=== PATIENT | female | born 1980 | race Caucasian/White ===

== ENCOUNTER 2024-10-25 07:30 | Day surgery (SDC) | payer BC, SELFPAY ==
[2024-10-24 10:31] VITALS: BMI 26.6
[2024-10-25 07:45] VITALS: BP 110/70; PULSE 83; RESP 16; TEMP 36.5; O2SAT 98
--- NOTE | 2024-10-25 08:02 | EXP.ANES.CKL ---
[facility] Disclaimer: The information contained in this section may have been updated after the patient was seen, as this information can be updated by other users. Medical History Peptic ulcer GERD (gastroesophageal reflux disease) H/O deep venous thrombosis Anxiety Surgical History H/O breast surgery H/O: hysterectomy H/O hemorrhoidectomy Family History Grandfather Cancer Alcoholism Liver disease Social History Smoking Status: Never smoker alcohol intake: never substance use type: denies use current occupational status: employed Travel in the last 8 weeks: Outside the [facility] Anesthesia Checklist Patient Identification Patient Identification: Arm Band Structural Data Admitted From: Home Planned Operative Procedure/s: Colonoscopy Consent for Planned Operative Procedure(s) Verified: Yes Verified Documents: Surgical Consent and History and Physical NPO Status Verified Time NPO: 00:00 Additional verifications Anesthesia Reactions: No Airway Assessment Mallampati Score:: Class II C-Spine Mobility Assessed: Yes TMJ Mobility Assessed: Yes Dentition: Good Dentition Neurological Assessment Level of Consciousness: Awake, Alert and Appropriate Anesthesia Plan Anesthesia Risk discussed: Yes Anesthesia Plan: Verified ASA Class: II Anesthesia Type: MAC
--- NOTE | 2024-10-25 08:20 | EXP.HP ---
History of Present Illness *Admission Date: 10/25/24 *Reason for visit:: Cecal lesion *History of present illness: Mrs. Song is a 43-year-old female who is here for second opinion/GI consultation. The patient did have a colonoscopy in August 2023 (Maureen Iyer MD?[facility] colorectal surgeon) and was told that she had a lesion/tumor in the cecum that was submucosal. She did a repeat colonoscopy in March 2024 with additional adenomatous polyps removed in the latter exam. After her second colonoscopy, she was told that this would have to be either removed surgically with right hemicolectomy, followed or endoscopic/colonoscopic removal. On its appearance it is umbilicated lesion that is submucosal in the cecum. She did have a CAT scan of the abdomen and pelvis at [facility] and there is no comment about any lesion on the colon and there is a very bare bones report. The patient states that at the time of her colonoscopy she did have hemorrhoid ablation. After her last colonoscopy, she had a remarkable change and has had constipation where she may go days without a bowel movement and did not have this prior to the colonoscopy. She does feel incomplete defecation. She also notes persistent right sided abdominal pain that is new. The patient reports no rectal bleeding or weight loss. She is concerned about the lesion and what to do and comes in for second opinion. [facility] Disclaimer: The information contained in this section may have been updated after the patient was seen, as this information can be updated by other users. Medical History Peptic ulcer GERD (gastroesophageal reflux disease) H/O deep venous thrombosis Anxiety Surgical History H/O breast surgery H/O: hysterectomy H/O hemorrhoidectomy Family History Grandfather Cancer Alcoholism Liver disease Social History (Updated 10/25/24 @ 08:03 by Jose Angel Ayers CRNA) Smoking Status: Never smoker alcohol intake: never substance use type: denies use current occupational status: employed Travel in the last 8 weeks: Outside the continental [place] Have you lived/traveled outside US in past 30 days?: No Contact w/someone who lives/traveled outside US past 30 days?: No Exposure to someone with infectious disease in past 14 days?: No Do you have a fever (greater than 100.4 F or 38 C)?: No Have you tested positive for COVID-19: No Exposed to someone with COVID-19 in past 14 days?: No Do you have a sore throat?: No Do you have a cough?: No Do you have any weakness?: No Are you experiencing any nausea/vomitting?: No Do you have any diarrhea?: No Are you experiencing any unusual bleeding?: No Do you have any muscle aches/pain?: No Do you have any abdominal pain?: No Are you experiencing loss of taste or smell?: No Review of Systems Review of Systems Review of systems (narrative): Negative *Cardiovascular Comments: Negative *Gastrointestinal Comments: Negative *Genitourinary Comments: Negative *Musculoskeletal Comments: Negative *Neurologic Comments: Negative Meds Home Medications and Allergies Home Medications ?Medication ?Instructions ?Recorded ?Confirmed ?Type Lactobacillus acidophilus 5,000 mmu cells PO DAILY 08/16/24 10/25/24 History cetirizine 5 mg tablet 5 mg PO DAILY PRN allergies 08/16/24 10/25/24 History cholecalciferol (vitamin D3) 50 50 mcg PO DAILY 08/16/24 10/25/24 History mcg (2,000 unit) capsule magnesium 250 mg tablet 250 mg PO DAILY 08/16/24 10/25/24 History New Prescriptions to Start Prescriptions: Allergies Allergy/AdvReac Type Severity Reaction Status Date / Time No Known Allergies Allergy Verified 10/24/24 10:30 Exam Data for Last 24 hours Vital signs and Labs for Last 24 Hours: Temp Pulse Resp BP Pulse Ox O2 Del Method 97.7 F 83 16 110/70 98 Room Air 10/25/24 07:45 10/25/24 07:45 10/25/24 07:45 10/25/24 07:45 10/25/24 07:45 10/25/24 07:45 I & O for Last 24 hours: Intake & Output 10/22/24 10/23/24 10/24/24 10/25/24 23:59 23:59 23:59 23:59 Weight 170 lb *Routine HEENT Exam Head: Present normocephalic Eye: Present EOMI and PERRL ENT: Present mucous membranes moist *Routine Neck Exam Neck: Present supple *Routine Respiratory Exam Respiratory: Present CTA bilaterally *Routine Cardiovascular Exam Cardiovascular: Present RRR *Routine Abdominal Exam Abdominal: Present soft and normoactive bowel sounds; Absent tenderness *Routine Rectal Exam Rectal:: deferred *Routine Genitalia Exam Genitalia:: deferred *Routine Extremities Exam Extremities: Absent cyanosis, clubbing or edema *Routine Skin Exam Skin: Present warm; Absent rash *Routine Neurological Exam Neurological: Present alert and oriented X3 Assessment and Plan *Assessment and plan (1) Cecum mass: Status: Acute Category: Medical Code(s): K63.89 - Other specified diseases of intestine (2) Constipation: Status: Acute Category: Medical Code(s): K59.00 - Constipation, unspecified (3) Bloating: Status: Acute Category: Medical Code(s): R14.0 - Abdominal distension (gaseous) (4) Change in bowel habits: Status: Acute Category: Medical Code(s): R19.4 - Change in bowel habit (5) Right lower quadrant abdominal pain: Status: Acute Category: Medical Code(s): R10.31 - Right lower quadrant pain (6) Submucosal colonic lesion: Status: Acute Category: Medical Code(s): K63.9 - Disease of intestine, unspecified Plan A/P: 1. Cecal mass with right lower quadrant abdominal pain, bloating and constipation is the preprocedural diagnosis. The patient will be anesthetized/sedated using MAC sedation. The patient has been seen and examined. Cardiac and lung assessment prior to the examination is stable. Proceed with planned diagnostic colonoscopy
--- NOTE | 2024-10-25 08:22 | HMH.PROCNOTE ---
[facility] Procedure Note Date: 10/25/24 Time: 08:52 Procedure Note:: Colonoscopy Procedure Report: Colonoscopy with cold biopsies Endoscopist: Damion Mireles II, MD Referring physician: SUMAN Stephenson Date of Procedure: October 25, 2024 Equipment: Olympus 190 variable stiffness pediatric colonoscope Sedation: MAC sedation Indication: Mrs. Song is a 43-year-old female who is here for diagnostic colonoscopy secondary to cecal mass with some change in bowel habits, constipation and persistent right-sided abdominal pain. The patient did have a colonoscopy in August 2023 (Maureen Iyer MD?[facility] colorectal surgeon) and was told that she had a lesion/tumor in the cecum that was submucosal. She did a repeat colonoscopy in March 2024 with additional adenomatous polyps removed in the latter exam. After her second colonoscopy, she was told that this would have to be either removed surgically with right hemicolectomy, followed or endoscopic/colonoscopic removal. On its appearance it is umbilicated lesion that is submucosal in the cecum. She did have a CAT scan of the abdomen and pelvis at [facility] and there is no comment about any lesion on the colon and there is a very bare bones report. The patient states that at the time of her colonoscopy she did have hemorrhoid ablation. After her last colonoscopy, she had a remarkable change and has had constipation where she may go days without a bowel movement and did not have this prior to the colonoscopy. She does feel incomplete defecation. She also notes persistent right sided abdominal pain that is new. The patient reports no rectal bleeding or weight loss. She is concerned about the lesion and what to do and comes in for second opinion. Procedure: Prior to the procedure, a history and physical exam was performed, and patient's medications and allergies were reviewed. The risks, benefits and alternatives of the sedation and procedure were discussed with the patient. All questions were answered and informed consent was obtained. The patient was brought to the procedure room. Patient identification and proposed procedure were verified by the physician and the nurse. The patient was placed in a left lateral decubitus position and the scope was passed under direct vision. Throughout the procedure, the patient's blood pressure, pulse, and oxygen saturations were monitored continuously. The colonoscopy was accomplished without difficulty. The patient tolerated the procedure well. Findings: On digital rectal examination there was normal rectal tone. There were no external hemorrhoids. The colonoscope was introduced through the anal canal to the rectum and advanced to the cecum. The ileocecal valve and appendiceal orifice were identified. The scope was advanced a short distance into the ileum which appeared grossly normal. The scope was then withdrawn into the colon. Within the cecum there was a 10 to 11 mm submucosal lesion that on first appearance appeared to be lipoma. This was smooth bordered. The cold biopsy forceps was utilized to take deeper well biopsies and the tissue was firm and less typical of lipoma. Deeper well biopsies did not yield any that my cells or subepithelial fat. Multiple biopsies were taken for examination. The remaining ascending, transverse, descending, sigmoid and rectum were grossly normal. There were no mucosal abnormalities identified. Upon retroflexion within the rectum there were grade 1-2 internal hemorrhoids. The preparation was excellent throughout with [place] Preparation Score of 9. The cecal time was 12 minutes. Impression: 1. 10 to 11 mm submucosal cecal polypoid lesion?rule out NET (neuroendocrine tumor), GIST (GI stromal tumor) or leiomyoma Plan: I will follow-up the deeper well biopsies and discussed the findings with the patient and family. These deeper biopsies are essential for accurate diagnosis and if inconclusive, surgical removal may be warranted.
[2024-10-25 08:27] VITALS: O2SAT 98
[2024-10-25 08:58] VITALS: BP 98/61; PULSE 79; RESP 18; TEMP 36.1; O2SAT 96
[2024-10-25 09:08] VITALS: BP 94/59; PULSE 59; RESP 17; O2SAT 99
[2024-10-25 09:18] VITALS: BP 98/69; PULSE 73; RESP 18; O2SAT 97
[2024-10-25 09:28] VITALS: BP 108/66; PULSE 69; RESP 17; O2SAT 98
== END 2024-10-25 09:48 | disposition home or self-care (01) ==
PROVIDERS: PCP Nurse Practitioner Family; Visit Provider Internal Medicine Gastroenterology
PROC: 0DJD8ZZ Inspection of Lower Intestinal Tract, Via Natural or Artificial Opening Endoscopic (ICD-10-PCS; CPT 45378; principal; 2024-10-25 09:00)
DX: K59.00 Constipation, unspecified (principal); K63.89 Other specified diseases of intestine; R14.0 Abdominal distension (gaseous); R10.31 Right lower quadrant pain; K63.9 Disease of intestine, unspecified; Z86.0100 Personal history of colon polyps, unspecified; K64.8 Other hemorrhoids; D12.0 Benign neoplasm of cecum
CPT/HCPCS: 45380